=== PATIENT | male | born 1965 | race Caucasian/White ===

== ENCOUNTER 2021-08-29 11:07 | Emergency (ER) | payer OTHER, SELFPAY ==
[2021-08-29] VITALS (8 sets, daily range): BP systolic 130–160; BP diastolic 78–87; PULSE 80–84; RESP 16–18; TEMP 37; O2SAT 94–98; BMI 27.6
--- NOTE | 2021-08-29 11:33 | CT_ITS ---
WS: [id number] CT ABDOMEN PELVIS TECHNIQUE: Noncontrast CT of the abdomen and pelvis with coronal and sagittal reformatted images. CLINICAL INFORMATION: R flank/abdominal pain COMPARISON: None. DLP: 1255.[address] scans at [facility] use at least one of these dose optimization techniques: automated e xposure control; mA and/or kV adjustment per patient size (includes targeted exams where dose is matc hed to clinical indication); or iterative reconstruction. FINDINGS: Obstructing 4.8 mm RIGHT distal ureteral calculus with RIGHT ureterectasis and mild RIGHT hydronephro sis. Inflammatory stranding and edema about the RIGHT kidney. No obstructing LEFT renal or ureteral c alculi. Bilateral nonobstructing renal parenchymal and tiny calyceal tip calculi. Lung bases are well aerated. Normal noncontrast liver and spleen. A few tiny cysts RIGHT hepatic lob e. Noncontrast pancreas appears normal. Normal GE junction. Normal caliber abdominal aorta. Aortic ca lcification. Adrenal glands are normal. Normal appendix in the RIGHT lower quadrant. Enlarged prostate measuring 5.1 cm. Incidental fat-containing inguinal hernias. CT/CT kidney stone 19730 IMPRESSION: 1. RIGHT distal obstructing ureteral calculus measuring 4.8 mm with moderate R IGHT ureterectasis and hydronephrosis. 2. Inflammatory stranding and edema about the RIGHT kidney. 3. Enlarged prostate measuring 5.1 CM. Recommend correlation PSA. Notified DORIS Grove at 08/29/2021 12:53 PM.
--- NOTE | 2021-08-29 11:34 | W.ED.MALEGU ---
Documented by User: DORIS Grove 08/29/21 14:29 HPI - Male Genitourinary General: Chief complaint: Back Pain/Injury Stated complaint: R flank pain Time Seen by Provider: 08/29/21 11:19 Source: patient Mode of arrival: ambulatory Limitations: no limitations History of Present Illness: Patient is a nice 56-year-old male who presents to ED today with what he suspects to be a right kidney/ureter stone. He states approximately 4 to 5 days ago he began having right flank pain that has progressed and moved around into the right side of his abdomen. He does complain of some urinary urgency and frequency. He states he has one previous history of a ureter stone that was treated with a ureter stent and lithotripsy. This was performed in [place] where he is from. He is currently in town visiting his son. Patient states he has felt very nauseous this morning and has had repetitive episodes of dry heaves. Having normal bowel movements. No fevers. MD Complaint: other (R flank pain/abdominal pain; urinary urgency/frequency) Onset (ago): day(s) Duration: constant Location: right flank Radiation: abdomen Severity: moderate Quality: sharp Relieving factors: none Exacerbating factors: none Associated symptoms: Reports nausea; Deny dysuria, hematuria or vomiting Review of Systems Const: Denies: fever(s), chills, body aches, fatigue or malaise Card: Denies: chest pain Resp: Denies: dyspnea GI: Reports: abdominal pain and nausea; Denies: vomiting, hematemesis, diarrhea or change in bowel habits : Reports: flank pain, urinary frequency and urinary urgency; Denies: dysuria, hematuria, genital pain or testicular pain Musc: Reports: back pain (R flank); Denies: neck pain, extremity pain or joint pain Skin/Breast: Denies: rash Neuro: Denies: headache(s) Physical Exam Const: COMMON NORMALS: no acute distress, average body habitus, patient oriented x3, no limitations, healthy appearing, alert and well nourished GENERAL APPEARANCE: cooperative ORIENTATION/CONSCIOUSNESS: Yes awake, Yes oriented to person, Yes oriented to place and Yes oriented to time Resp: COMMON NORMALS: normal respiratory effort and clear to auscultation bilaterally AUSCULTATION: clear to auscultation bilaterally Cardio: COMMON NORMALS: regular rate and regular rhythm RATE: regular rate RHYTHM: regular rhythm GI: COMMON NORMALS: Normal to inspection, nondistended, normoactive bowel sounds present, Soft to palpation, No hepatosplenomegaly present and no masses INSPECTION: Yes normal to inspection AUSCULTATION: Yes normoactive bowel sounds PALPATION: Yes Soft to palpation, Yes Tenderness to palpation present (GI) (throughout R side of abdomen), No Guarding due to palpation present (GI), No Rigid due to palpation and Yes No hepatosplenomegaly present : BLADDER/KIDNEY EXAM: Yes CVA tenderness on the right Back/Pelvis: COMMON NORMALS: thoracic and lumbar spine normal to inspection, no thoracic nor lumbar tenderness and thoraco-lumbar ROM normal GENERAL BACK: Yes CVA tenderness Extremity: COMMON NORMALS: normal to inspection GENERAL: Yes normal exam except as noted Neuro: WANDY COMA SCALE: document GCS findings [place] coma scale eye opening: Spontaneous [place] coma scale verbal response: Orientated [place] coma scale motor response: Obey commands [place] coma scale total score: 15 COMMON NORMALS: patient oriented x3, moves all extremities, no focal motor deficits and no sensory deficits noted SENSORIUM/ORIENTATION: Yes alert, Yes oriented to person, Yes oriented to place and Yes oriented to time Skin: COMMON NORMALS: no rashes or lesions noted GENERAL SKIN EXAM: no rashes or lesions noted Course Vital Signs: Vital signs: Vital Signs Temperature 98.6 F 08/29/21 11:15 Pulse Rate 80 08/29/21 14:48 Respiratory Rate 18 08/29/21 12:17 Blood Pressure 130/78 08/29/21 14:48 Pulse Oximetry 94 08/29/21 14:48 MDM - Male Medical Decision Making Patient does have a 4.8 mm right distal ureter stone with mild to moderate hydro. Patient's vital signs are stable. He was controlled here and he is currently rating pain at a 0/10. On his labs he has a white count of 16.0. There is no infection noted on his UA. Chemistry panel does show some minor elevations to his BUN/Cr at 23/1.8 from the obstruction. Case discussed with Dr. Pan who felt patient was stable for follow-up with urology. Patient will be sent home with urine strainer, pain/nausea medications, and flomax. He states he will be traveling home to [place] in 2-3 days. Strict return to ED precautions given before then for returning here otherwise he needs to follow-up with his PCP/urologist promptly when he returns home. Lab Data : 08/29/21 11:33 08/29/21 11:33 Radiology Impressions Abdomen/Pelvis CT 08/29/21 11:33 IMPRESSION: 1. RIGHT distal obstructing ureteral calculus measuring 4.8 mm with moderate RIGHT ureterectasis and hydronephrosis. 2. Inflammatory stranding and edema about the RIGHT kidney. 3. Enlarged prostate measuring 5.1 CM. Recommend correlation PSA. Notified DORIS Grove at 08/29/2021 12:53 PM. Laboratory Results WBC 16.0 10^3/uL (4.0-10.0) H 08/29/21 11:33 RBC 5.05 10^6/uL (4.1-5.3) 08/29/21 11:33 Hgb 15.3 g/dL (11.7-16.6) 08/29/21 11:33 Hct 44.5 % (42.0-52.0) 08/29/21 11:33 MCV 88.1 fl (80-94) 08/29/21 11:33 MCH 30.3 pg (28.0-34.0) 08/29/21 11:33 MCHC 34.4 g/dL (30.0-36.0) 08/29/21 11:33 RDW 12.8 % (12.1-15.1) 08/29/21 11:33 Plt Count 236 10^3/cmm (130-400) 08/29/21 11:33 MPV 11.8 fL (7.4-10.4) H 08/29/21 11:33 Neut % (Auto) 83.6 % 08/29/21 11:33 Lymph % (Auto) 8.7 % 08/29/21 11:33 Traverse % (Auto) 6.4 % 08/29/21 11:33 Eos % (Auto) 0.4 % 08/29/21 11:33 Baso % (Auto) 0.5 % 08/29/21 11:33 Neut # (Auto) 13.40 10^3/uL (1.8-7.7) H 08/29/21 11:33 Lymph # (Auto) 1.4 10^3/uL (0.8-4.8) 08/29/21 11:33 Traverse # (Auto) 1.0 10^3/uL (0.2-0.9) H 08/29/21 11:33 Eos # (Auto) 0.1 10^3/uL (0.0-0.8) 08/29/21 11:33 Baso # (Auto) 0.1 10^3/uL (0.0-0.1) 08/29/21 11:33 Nucleated RBC % (auto) 0 % 08/29/21 11:33 Nucleated RBCs # 0.0 /100WBC 08/29/21 11:33 Sodium 136 mmol/L (136-145) 08/29/21 11:33 Potassium 4.3 mmol/L (3.5-5.1) 08/29/21 11:33 Chloride 99 mmol/L (98-107) 08/29/21 11:33 Carbon Dioxide 19 mmol/L (22-29) L 08/29/21 11:33 Anion Gap 22.3 (5-19) H 08/29/21 11:33 BUN 23 mg/dL (6-20) H 08/29/21 11:33 Creatinine 1.8 mg/dL (0.7-1.2) H 08/29/21 11:33 GFR Calculation 39.4 mL/min (90-130) L 08/29/21 11:33 Glucose 131 mg/dL (65-115) H 08/29/21 11:33 Calculated Osmolality 287 mOsm/kg (285-295) 08/29/21 11:33 Calcium 9.6 mg/dL (8.5-10.5) 08/29/21 11:33 Total Bilirubin 0.9 mg/dL (0.15-1.2) 08/29/21 11:33 AST 15 U/L (0-40) 08/29/21 11:33 ALT 10 U/L (0-41) 08/29/21 11:33 Alkaline Phosphatase 35 IU/L (40-130) L 08/29/21 11:33 Total Protein 7.7 g/dL (6.6-8.7) 08/29/21 11:33 Albumin 4.4 g/dL (3.5-5.2) 08/29/21 11:33 Globulin 3.3 g/dL (1.3-4.6) 08/29/21 11:33 Urine Color Yellow (Yellow) 08/29/21 11:33 Urine Appearance Cloudy (CLEAR) 08/29/21 11:33 Urine pH 5 (5-7) 08/29/21 11:33 Ur Specific [place] 1.025 (1.005-1.030) 08/29/21 11:33 Urine Protein Trace (Negative) 08/29/21 11:33 Urine Glucose (UA) Norm (Normal) 08/29/21 11:33 Urine Ketones Negative (Negative) 08/29/21 11:33 Urine Blood 3+ (Negative) H 08/29/21 11:33 Urine Nitrate Negative (Negative) 08/29/21 11:33 Urine Bilirubin 1+ (Negative) H 08/29/21 11:33 Urine Urobilinogen 1 mg/dL (Negative) H 08/29/21 11:33 Ur Leukocyte Esterase Negative (Negative) 08/29/21 11:33 Urine RBC Too numerous to cnt /hpf (0-2) H 08/29/21 11:33 Urine WBC 0-4 /hpf (0-5) H 08/29/21 11:33 Ur Squamous Epith Cells 0-4 /hpf (0-5) H 08/29/21 11:33 Amorphous Sediment Not Reportable 08/29/21 11:33 Urine Bacteria None /hpf (NONE) 08/29/21 11:33 Discharge Plan Discharge Patient Disposition: Home Clinical Impression: Calculus of distal right ureter Condition: Stable Prescriptions: New hydrocodone-acetaminophen 5-325 mg tablet 1 tab PO Q6H PRN (Reason: pain) Qty: 20 0RF Flomax 0.4 mg capsule 0.4 mg PO DAILY Qty: 10 0RF ondansetron 4 mg tablet,disintegrating 4 mg PO Q8H PRN (Reason: nausea and vomiting) Qty: 20 0RF No Action atorvastatin 80 mg tablet 80 mg PO BEDTIME 0RF lisinopril 20 mg tablet 20 mg PO DAILY 0RF metformin 850 mg tablet 850 mg PO BEDTIME 0RF atenolol 25 mg tablet 25 mg PO BID 0RF clopidogrel 75 mg tablet 75 mg PO DAILY 0RF aspirin 81 mg tablet,delayed release (DR/EC) 81 mg PO DAILY 0RF glimepiride 2 mg tablet 2 mg PO QAM 0RF fenofibrate 160 mg tablet 160 mg PO QAM 0RF Rybelsus 7 mg tablet 7 mg PO DAILY 0RF multivitamin Tablet 1 tab PO DAILY 0RF Xanax 1 mg Tablet 1 mg PO BID PRN (Reason: Anxiety) 0RF Kemp 1 tab PO .ONCE 0RF Discharge Orders: Discharge ED (Routine); Ordered 08/29/21 Ordered By: Carline Frazier Patient Instructions: Ureteral Stones (ED), Opioid Safety Activity Restrictions/Additional Instructions: As we discussed you need to begin straining your urine. Fill your prescriptions probably. The Flomax you need to be taking daily. The pain and nausea medications you can use as needed. As we discussed you need to follow-up promptly with your primary care provider or urologist when you return home. You need to return here in the meantime if you begin having worsening or uncontrollable flank/abdominal pain, ability to urinate, fevers, repetitive episodes of vomiting, or any other concerns you may have. I hope you begin to feel better soon. Coding Level of Care Code ED Investment Representative for Chg Fwd Exam Comprehensive Documented by User: Juanito Pan DO 08/29/21 15:01 HPI - Male Genitourinary General: Chief complaint: Back Pain/Injury Stated complaint: R flank pain Time Seen by Provider: 08/29/21 11:19 Physical Exam Neuro: WANDY COMA SCALE: document GCS findings [place] coma scale total score: 15 Course Vital Signs: Vital signs: Vital Signs Temperature 98.6 F 08/29/21 11:15 Pulse Rate 80 08/29/21 14:48 Respiratory Rate 18 08/29/21 12:17 Blood Pressure 130/78 08/29/21 14:48 Pulse Oximetry 94 08/29/21 14:48 MDM - Male Medical Decision Making Patient does have a 4.8 mm right distal ureter stone with mild to moderate hydro. Patient's vital signs are stable. He was controlled here and he is currently rating pain at a 0/10. On his labs he has a white count of 16.0. There is no infection noted on his UA. Chemistry panel does show some minor elevations to his BUN/Cr at 23/1.8 from the obstruction. Case discussed with Dr. Pan who felt patient was stable for follow-up with urology. Patient will be sent home with urine strainer, pain/nausea medications, and flomax. He states he will be traveling home to [place] in 2-3 days. Strict return to ED precautions given before then for returning here otherwise he needs to follow-up with his PCP/urologist promptly when he returns home. Chart reviewed and patient discussed with midlevel. Agree with assessment and plan. Medical Records I reviewed the patient's medical records. Lab Data I reviewed the patient's lab results. : 08/29/21 11:33 08/29/21 11:33 Radiology Impressions Abdomen/Pelvis CT 08/29/21 11:33 IMPRESSION: 1. RIGHT distal obstructing ureteral calculus measuring 4.8 mm with moderate RIGHT ureterectasis and hydronephrosis. 2. Inflammatory stranding and edema about the RIGHT kidney. 3. Enlarged prostate measuring 5.1 CM. Recommend correlation PSA. Notified DORIS Grove at 08/29/2021 12:53 PM. Laboratory Results WBC 16.0 10^3/uL (4.0-10.0) H 08/29/21 11:33 RBC 5.05 10^6/uL (4.1-5.3) 08/29/21 11:33 Hgb 15.3 g/dL (11.7-16.6) 08/29/21 11:33 Hct 44.5 % (42.0-52.0) 08/29/21 11:33 MCV 88.1 fl (80-94) 08/29/21 11:33 MCH 30.3 pg (28.0-34.0) 08/29/21 11:33 MCHC 34.4 g/dL (30.0-36.0) 08/29/21 11:33 RDW 12.8 % (12.1-15.1) 08/29/21 11:33 Plt Count 236 10^3/cmm (130-400) 08/29/21 11:33 MPV 11.8 fL (7.4-10.4) H 08/29/21 11:33 Neut % (Auto) 83.6 % 08/29/21 11:33 Lymph % (Auto) 8.7 % 08/29/21 11:33 Traverse % (Auto) 6.4 % 08/29/21 11:33 Eos % (Auto) 0.4 % 08/29/21 11:33 Baso % (Auto) 0.5 % 08/29/21 11:33 Neut # (Auto) 13.40 10^3/uL (1.8-7.7) H 08/29/21 11:33 Lymph # (Auto) 1.4 10^3/uL (0.8-4.8) 08/29/21 11:33 Traverse # (Auto) 1.0 10^3/uL (0.2-0.9) H 08/29/21 11:33 Eos # (Auto) 0.1 10^3/uL (0.0-0.8) 08/29/21 11:33 Baso # (Auto) 0.1 10^3/uL (0.0-0.1) 08/29/21 11:33 Nucleated RBC % (auto) 0 % 08/29/21 11:33 Nucleated RBCs # 0.0 /100WBC 08/29/21 11:33 Sodium 136 mmol/L (136-145) 08/29/21 11:33 Potassium 4.3 mmol/L (3.5-5.1) 08/29/21 11:33 Chloride 99 mmol/L (98-107) 08/29/21 11:33 Carbon Dioxide 19 mmol/L (22-29) L 08/29/21 11:33 Anion Gap 22.3 (5-19) H 08/29/21 11:33 BUN 23 mg/dL (6-20) H 08/29/21 11:33 Creatinine 1.8 mg/dL (0.7-1.2) H 08/29/21 11:33 GFR Calculation 39.4 mL/min (90-130) L 08/29/21 11:33 Glucose 131 mg/dL (65-115) H 08/29/21 11:33 Calculated Osmolality 287 mOsm/kg (285-295) 08/29/21 11:33 Calcium 9.6 mg/dL (8.5-10.5) 08/29/21 11:33 Total Bilirubin 0.9 mg/dL (0.15-1.2) 08/29/21 11:33 AST 15 U/L (0-40) 08/29/21 11:33 ALT 10 U/L (0-41) 08/29/21 11:33 Alkaline Phosphatase 35 IU/L (40-130) L 08/29/21 11:33 Total Protein 7.7 g/dL (6.6-8.7) 08/29/21 11:33 Albumin 4.4 g/dL (3.5-5.2) 08/29/21 11:33 Globulin 3.3 g/dL (1.3-4.6) 08/29/21 11:33 Urine Color Yellow (Yellow) 08/29/21 11:33 Urine Appearance Cloudy (CLEAR) 08/29/21 11:33 Urine pH 5 (5-7) 08/29/21 11:33 Ur Specific [place] 1.025 (1.005-1.030) 08/29/21 11:33 Urine Protein Trace (Negative) 08/29/21 11:33 Urine Glucose (UA) Norm (Normal) 08/29/21 11:33 Urine Ketones Negative (Negative) 08/29/21 11:33 Urine Blood 3+ (Negative) H 08/29/21 11:33 Urine Nitrate Negative (Negative) 08/29/21 11:33 Urine Bilirubin 1+ (Negative) H 08/29/21 11:33 Urine Urobilinogen 1 mg/dL (Negative) H 08/29/21 11:33 Ur Leukocyte Esterase Negative (Negative) 08/29/21 11:33 Urine RBC Too numerous to cnt /hpf (0-2) H 08/29/21 11:33 Urine WBC 0-4 /hpf (0-5) H 08/29/21 11:33 Ur Squamous Epith Cells 0-4 /hpf (0-5) H 08/29/21 11:33 Amorphous Sediment Not Reportable 08/29/21 11:33 Urine Bacteria None /hpf (NONE) 08/29/21 11:33 Discharge Plan Discharge Patient Disposition: Home Clinical Impression: Calculus of distal right ureter Condition: Stable Prescriptions: New hydrocodone-acetaminophen 5-325 mg tablet 1 tab PO Q6H PRN (Reason: pain) Qty: 20 0RF Flomax 0.4 mg capsule 0.4 mg PO DAILY Qty: 10 0RF ondansetron 4 mg tablet,disintegrating 4 mg PO Q8H PRN (Reason: nausea and vomiting) Qty: 20 0RF No Action atorvastatin 80 mg tablet 80 mg PO BEDTIME 0RF lisinopril 20 mg tablet 20 mg PO DAILY 0RF metformin 850 mg tablet 850 mg PO BEDTIME 0RF atenolol 25 mg tablet 25 mg PO BID 0RF clopidogrel 75 mg tablet 75 mg PO DAILY 0RF aspirin 81 mg tablet,delayed release (DR/EC) 81 mg PO DAILY 0RF glimepiride 2 mg tablet 2 mg PO QAM 0RF fenofibrate 160 mg tablet 160 mg PO QAM 0RF Rybelsus 7 mg tablet 7 mg PO DAILY 0RF multivitamin Tablet 1 tab PO DAILY 0RF Xanax 1 mg Tablet 1 mg PO BID PRN (Reason: Anxiety) 0RF Kemp 1 tab PO .ONCE 0RF Discharge Orders: Discharge ED (Routine); Ordered 08/29/21 Ordered By: Carline Frazier Patient Instructions: Ureteral Stones (ED), Opioid Safety Activity Restrictions/Additional Instructions: As we discussed you need to begin straining your urine. Fill your prescriptions probably. The Flomax you need to be taking daily. The pain and nausea medications you can use as needed. As we discussed you need to follow-up promptly with your primary care provider or urologist when you return home. You need to return here in the meantime if you begin having worsening or uncontrollable flank/abdominal pain, ability to urinate, fevers, repetitive episodes of vomiting, or any other concerns you may have. I hope you begin to feel better soon. Coding Level of Care Code ED Investment Representative for Tami Fwd Exam Comprehensive
[2021-08-29 11:39] LABS: Basophils # 0.1 10^3/uL (0.0-0.1); Basophils % 0.5 %; Eosinophils # 0.1 10^3/uL (0.0-0.8); Eosinophils % 0.4 %; Hematocrit 44.5 % (42.0-52.0); Hemoglobin 15.3 g/dL (11.7-16.6); Lymphocytes # 1.4 10^3/uL (0.8-4.8); Lymphocytes % 8.7 %; Mean Corpuscular HGB Conc 34.4 g/dL (30.0-36.0); Mean Corpuscular Hemoglobin 30.3 pg (28.0-34.0); Mean Corpuscular Volume 88.1 fl (80-94); Mean Platelet Volume 11.8 fL (7.4-10.4); Monocytes % 6.4 %; Neutrophils % 83.6 %; Nucleated Red Blood Cells % 0 %; Platelet Count 236 10^3/cmm (130-400); Red Blood Count 5.05 10^6/uL (4.1-5.3); Red Cell Distribution Width 12.8 % (12.1-15.1)
[2021-08-29 11:45] LABS: Blood Urine 3+ (Negative); Glucose Urine UA Norm (Normal); Ketones Urine Negative (Negative); Nitrate Urine Negative (Negative); Protein Urine Trace (Negative); Specific Gravity, Urine 1.025 (1.005-1.030); Urine Appearance Cloudy (CLEAR); Urine Color Yellow (Yellow); pH Urine 5 (5-7)
[2021-08-29 11:46] LABS: Add Urine Microscopic? YES; Bilirubin Urine 1+ (Negative); Leukocyte Esterase Urine Negative (Negative); Urobilinogen Urine 1 mg/dL (Negative)
[2021-08-29 11:49] LABS: RBC Urine TOO NUMEROUS TO CNT /hpf (0-2); Squamous Epithelial Cell Urine 0-4 /hpf (0-5); WBC Urine 0-4 /hpf (0-5)
[2021-08-29 11:50] LABS: Add Urine Culture? Yes
[2021-08-29 11:57] LABS: Alanine Aminotransferase 10 U/L (0-41); Albumin Level 4.4 g/dL (3.5-5.2); Alkaline Phosphatase 35 IU/L (40-130); Anion Gap 22.3 (5-19); Aspartate Amino Transferase 15 U/L (0-40); Blood Urea Nitrogen 23 mg/dL (6-20); Calcium 9.6 mg/dL (8.5-10.5); Carbon Dioxide 19 mmol/L (22-29); Chloride 99 mmol/L (98-107); Globulin 3.3 g/dL (1.3-4.6); Glomerular Filtration Rate 39.4 mL/min (90-130); Glucose 131 mg/dL (65-115); Osmolality Calculated 287 mOsm/kg (285-295); Potassium 4.3 mmol/L (3.5-5.1); Sodium 136 mmol/L (136-145); Total Bilirubin 0.9 mg/dL (0.15-1.2); Total Protein 7.7 g/dL (6.6-8.7)
--- NOTE | 2021-08-29 12:05 | PC.PHAR ---
pts aminta verified pts medications-notes are made in the pharmacy comments
[2021-08-29] MEDS: sodium chloride 0.9% 1,000 ML 999 ML IV (12:19)
[2021-08-29] MEDS: ondansetron 2 mg/ML SDV 2 mL 4 MG IVP (12:20)
[2021-08-29] MEDS: morphine 4 mg/mL SDV 1 mL IVP (12:20)
[2021-08-29] MEDS: ketorolac 30 mg/mL INJ 15 MG IVP (13:48)
[2021-08-29] MEDS: HYDROmorphone 1 mg/mL INJ 1 mL 0.5 MG IVP (13:48)
== END 2021-08-29 14:38 | disposition home or self-care (01) ==
PROVIDERS: Emergency Provider Physician Assistant
DX: N20.1 Calculus of ureter (principal)
CPT/HCPCS: 74176; 80053; 81001; 85025; 87086; 96361; 96374; 96375; 99285; J1170; J1885; J2270; J2405; J7030